=== PATIENT | female | born 1945 | race Native Hawaiian/Other Pacific Islander ===

== ENCOUNTER 2016-05-17 16:48 | Outpatient (CLI) | payer OTHER | END 2016-05-17 20:16 | disposition home or self-care (01) | LOC: RAD 16:48 | DX: S80.12XA Contusion of left lower leg, initial encounter (principal) ==

== ENCOUNTER 2017-06-16 09:58 | Outpatient (CLI) | payer OTHER | END 2017-06-16 19:23 | disposition home or self-care (01) | LOC: RAD 09:58 | DX: M81.0 Age-related osteoporosis without current pathological fracture (principal) ==

== ENCOUNTER 2019-02-25 10:46 | Outpatient (CLI) | payer OTHER | END 2019-02-25 19:27 | disposition home or self-care (01) | LOC: RAD 10:46 | DX: M54.2 Cervicalgia (principal) ==

== ENCOUNTER 2019-04-12 10:58 | Outpatient (CLI) | payer OTHER ==
[2019-04-12 11:25] LABS: POTASSIUM 4.4 mmol/L (3.6-5.2)
== END 2019-04-12 22:05 | disposition home or self-care (01) ==
LOC: LABW 10:58
PROVIDERS: Nurse Practitioner
DX: M25.50 Pain in unspecified joint (principal); E87.0 Hyperosmolality and hypernatremia
CPT/HCPCS: 36415; 80053; 86038; 86430

== ENCOUNTER 2019-04-30 07:54 | Outpatient (CLI) | payer OTHER | END 2019-04-30 20:05 | disposition home or self-care (01) | LOC: MRI 07:54 | DX: M47.22 Other spondylosis with radiculopathy, cervical region (principal) ==

== ENCOUNTER 2019-06-10 09:45 | Outpatient (CLI) | payer OTHER | END 2019-06-10 19:29 | disposition home or self-care (01) | LOC: RAD 09:45 | DX: M85.89 Other specified disorders of bone density and structure, multiple sites (principal) ==

== ENCOUNTER 2019-06-24 09:46 | Outpatient (CLI) | payer OTHER | END 2019-06-24 19:05 | disposition home or self-care (01) | LOC: RESP 09:46 | DX: R06.02 Shortness of breath (principal) ==

== ENCOUNTER 2019-06-27 13:36 | Outpatient (CLI) | payer OTHER | END 2019-06-27 19:49 | disposition home or self-care (01) | LOC: RESP 13:36 | DX: M41 Scoliosis (principal) | CPT/HCPCS: 36600; 82805 ==

== ENCOUNTER 2019-11-27 19:25 | Emergency (ER) | payer OTHER ==
[~2019-11-27] VITALS: Ht 154.9 cm; Wt 71.2 kg
[2019-11-27 20:25] VITALS: BP 132/78; TEMP 98.5
== END 2019-11-27 20:27 | disposition home or self-care (01) ==
LOC: ED 19:25
PROC: 0T9B70Z Drainage of Bladder with Drainage Device, Via Natural or Artificial Opening (ICD-10-PCS; principal; 2019-11-27)
DX: R33.8 Other retention of urine (principal)
CPT/HCPCS: 51702; 99282

== ENCOUNTER 2021-01-22 08:36 | Outpatient (CLI) | payer OTHER ==
[2021-01-22 09:02] LABS: POTASSIUM 4.4 mmol/L (3.6-5.2)
== END 2021-01-22 19:02 | disposition home or self-care (01) ==
LOC: LABW 08:36
PROVIDERS: ATTEND Nurse Practitioner
DX: E87.5 Hyperkalemia (principal)
CPT/HCPCS: 36415; 80048

== ENCOUNTER 2021-03-16 14:55 | Outpatient (CLI) | payer OTHER ==
[2021-03-16 15:24] LABS: PLATELET COUNT 242 K/uL (152-353)
[2021-03-16 15:26] LABS: POTASSIUM 5.3 mmol/L (3.6-5.2)
== END 2021-03-16 21:22 | disposition home or self-care (01) ==
LOC: CT 14:55
PROVIDERS: ATTEND Nurse Practitioner Family
DX: R10.32 Left lower quadrant pain (principal); R19.7 Diarrhea, unspecified
CPT/HCPCS: 36415; 80053; 82150; 83690; 85027; Q9963

== ENCOUNTER 2021-03-17 10:41 | Outpatient (CLI) | payer OTHER | END 2021-03-17 22:37 | disposition home or self-care (01) | LOC: LABW 10:41 | PROVIDERS: ATTEND Nurse Practitioner Family | DX: R10.84 Generalized abdominal pain (principal); R19.7 Diarrhea, unspecified | CPT/HCPCS: 82272; 83630; 87015; 87045; 87324; 87328; 87329; 87449; 87899 ==

== ENCOUNTER 2021-09-15 07:52 | Outpatient (CLI) | payer OTHER | END 2021-09-15 18:59 | disposition home or self-care (01) | LOC: CT 07:52 | PROVIDERS: ATTEND Nurse Practitioner Family | DX: R10.31 Right lower quadrant pain (principal) ==

== ENCOUNTER 2022-03-10 10:25 | Outpatient (CLI) | payer OTHER | END 2022-03-10 23:09 | disposition home or self-care (01) | LOC: RAD 10:25 | PROVIDERS: ATTEND Nurse Practitioner Family | DX: M25.511 Pain in right shoulder (principal) ==

== ENCOUNTER 2022-05-10 11:28 | Outpatient (CLI) | payer OTHER | END 2022-05-10 22:19 | disposition home or self-care (01) | LOC: RAD 11:28 | PROVIDERS: ATTEND Nurse Practitioner Family | DX: M47.812 Spondylosis without myelopathy or radiculopathy, cervical region (principal) ==

== ENCOUNTER 2022-06-01 09:06 | Outpatient (CLI) | payer OTHER | END 2022-06-01 18:58 | disposition home or self-care (01) | LOC: MRI 09:06 | PROVIDERS: ATTEND Nurse Practitioner Family | DX: M54.12 Radiculopathy, cervical region (principal); M47.816 Spondylosis without myelopathy or radiculopathy, lumbar region ==

== ENCOUNTER 2022-07-06 08:07 | Emergency (ER) | payer OTHER ==
[~2022-07-06] VITALS: Ht 154.9 cm; Wt 63.5 kg
[2022-07-06 08:07] VITALS: TEMP 96.8
[2022-07-06 08:54] LABS: PLATELET COUNT 244 K/uL (152-353)
[2022-07-06 09:04] LABS: POTASSIUM 4.7 mmol/L (3.6-5.2)
[2022-07-06 14:35] VITALS: BP 117/74
== END 2022-07-06 15:00 | disposition short-term general hospital (02) ==
LOC: ED 08:07
PROVIDERS: Emergency Medicine Emergency Medical Services
PROC: 0D9670Z Drainage of Stomach with Drainage Device, Via Natural or Artificial Opening (ICD-10-PCS; principal; 2022-07-06)
PROC: 0T9B70Z Drainage of Bladder with Drainage Device, Via Natural or Artificial Opening (ICD-10-PCS; 2022-07-06)
DX: K56.7 Ileus, unspecified (principal); K52.89 Other specified noninfective gastroenteritis and colitis; Z11.52 Encounter for screening for COVID-19
CPT/HCPCS: 36415; 36600; 43754; 51702; 80053; 81002; 82150; 82272; 82805; 83605; 83690; 83735; 83880; 84484; 85027; 85610; 87040; 87635; 93005; 96361; 96365; 96375; 96376; 99284; J2270; J2405; J2543; J3490; Q9963; U0003